=== PATIENT | male | born 1945 | race Caucasian/White ===

== ENCOUNTER → 2017-01-20 | Outpatient (CLI) | payer OTHER ==
[2017-01-20 18:01] LABS: BASO % 1.4 %; BASO ABS # 0.07 K/uL (0-0.2); COMPLETE YES; EOS % 6.3 %; HEMATOCRIT 45.3 % (42-52); IG% 0.2 %; LYMPH % 39.8 %; LYMPH ABS # 2.02 K/uL (1.2-3.4); MEAN CELL VOLUME 91.3 fL (80-100); MEAN CORPUSCULAR HEMOGLOBIN 30.8 pg (25-34); MEAN CORPUSCULAR HGB CONC 33.8 g/dl (32-36); MEAN PLATELET VOLUME 10.4 fL (7.4-10.4); MONO % 10.3 %; PLATELET COUNT 205 K/uL (130-400); RED BLOOD COUNT 4.96 M/uL (4.7-6.1); WHITE BLOOD COUNT 5.07 K/uL (4.8-10.8)
[2017-01-20 18:56] LABS: ALT/SGPT 37 U/L (12-78); AST/SGOT 69 U/L (15-37); BLOOD UREA NITROGEN 31 mg/dl (7-18); BUN/CREATININE RATIO 22.2 (10-20); CALCIUM 9.5 mg/dl (8.5-10.1); CARBON DIOXIDE 29 mmol/L (21-32); CHLORIDE 105 mmol/L (98-107); GLUCOSE 92 mg/dl (70-99); POTASSIUM 3.7 mmol/L (3.5-5.1); SODIUM 141 mmol/L (136-145)
[2017-01-20 19:01] LABS: ALKALINE PHOSPHATASE 70 U/L (45-117); CHOLESTEROL 196 mg/dl (0-200); CHOLESTEROL/HDL RATIO 3.6; HDL CHOLESTEROL 55 mg/dl; LDL CHOLESTEROL CALCULATED 91 mg/dl; PROSTATE SPECIFIC ANTIGEN < 0.010 ng/ml (0.000-4.000); TRIGLYCERIDES 252 mg/dl (0-150); VERY LOW DENSITY LIPOPROT CALC 50 mg/dl
== END | disposition home or self-care (01) ==
LOC: C.LABMFLN 09:01
PROVIDERS: ATTEND Family Medicine
DX: Z11.59 Encounter for screening for other viral diseases (principal); E78.5 Hyperlipidemia, unspecified; I10 Essential (primary) hypertension; Z85.46 Personal history of malignant neoplasm of prostate

== ENCOUNTER 2023-02-09 18:04 | Inpatient (IN) ==
--- NOTE | 2023-02-09 18:24 | ED Triage Note ---
Date of Service February 09, 2023 History of Present Illness This patient was briefly evaluated while in triage. An abbreviated physical exam was performed. This patient is a 77-year-old Male who presents to the ED for evaluation of left calf pain and swelling. S/p total knee replacement in July with multiple postoperative complications including infected prosthetic knee joint s/p explant 1 week ago. Has PICC line for ongoing IV abx. Notes increased calf swelling this morning. Not on any anticoagulation. No history of blood clots. Denies numbness/tingling. Denies fever/chills, n/v, chest pain, SOB. Physical Exam Constitutional: alert and oriented x3. no acute distress. HEENT: normocephalic, atraumatic. normal conjunctiva.PERRLA. EOM's grossly intact. Respiratory: lungs are clear to auscultation without wheezes, rhonchi, or rales bilaterally. equal chest rise. normal respiratory effort, no accessory muscle use. Cardiovascular: normal heart sounds without murmur. regular rate and rhythm. GI: abdomen is soft, nontender. No palpable masses. No rebound tenderness or guarding. MSK: left s/p surgery. No erythema, warmth, tenderness knee. +3 swelling Left calf. Psych:appropriate mood and affect. Initial orders for labs and / or imaging were placed and patient was placed in the waiting area until a bed is available. Please see further documentation for the full ED course.
--- NOTE | 2023-02-09 19:50 | Emergency Department Note ---
Impression & Plan Complication, postoperative infection, Hematoma of left lower extremity ED Provider Note NAME: SWAPNIL CAMARA AGE: 77 SEX: M : 1945 ARRIVES VIA: Walk-In INFORMANT: Patient, ED PROVIDER(S): Garrett Garcia DO CHIEF COMPLAINT: Leg swelling HPI: The patient is a 77-year-old male who presented to the emergency department for an evaluation of left leg swelling. The patient describes swelling in his leg that became worse over the course the last 48 hours. He has had multiple surgeries on his left knee. He has a history of knee replacement and had a septic knee joint. He had removal of the hardware. He is getting IV antibiotics through a PICC line and also has antibiotic infused spacers in his left knee. He started noticing leg swelling. He does not have a history of DVT. He denies having any chest pain or difficulty breathing. He currently does not take any blood thinners. ROS: See above HPI for pertinent positives & negatives. A total of 10 systems reviewed and were otherwise negative. PAST MEDICAL HISTORY: See Below PAST SURGICAL HISTORY: See Below FAMILY HISTORY: See Below SOCIAL HISTORY: See Below HOME MEDICATIONS: See Below ALLERGIES: See Below VITALS: See Below PHYSICAL EXAMINATION: GENERAL: Patient is awake alert in no acute distress patient is resting comfortably and showing no signs of anxiety EYES: The conjunctivae are clear. The pupils are round and reactive. EARS, NOSE, MOUTH AND THROAT: The nose is without any evidence of any deformity. NECK: The neck is nontender and supple. RESPIRATORY: Normal respiratory effort is noted there is no evidence of wheezing rhonchi or rales CARDIOVASCULAR: Regular rate and rhythm noted there no murmurs rubs or gallops normal S1 normal S2. GASTROINTESTINAL: The abdomen is soft. Abdomen is nontender. MUSCULOSKELETAL/EXTREMITIES: There is a wound dressing in place over the left knee. There is no drainage or dehiscence. SKIN: Skin is warm and dry. There is symmetric swelling over the entire left lower leg. Pulses are symmetric in both feet. NEUROLOGIC: Patient is awake alert and oriented x3 MEDICAL DECISION MAKING: The patient is a 77-year-old male who presented to the emergency department for left leg pain. The patient noticed swelling on his left lower extremity. He is status post surgery on his left knee. He had a knee infection which was complicated with E. coli as well as Staphylococcus species. He has been receiving meropenem as well as vancomycin through a PICC line. The patient was treated with his dose of vancomycin in the emergency department. He was sent for a Doppler of the leg. This appeared to be consistent with a complex fluid collection in the left calf. The radiologist recommended a CT of the leg. CT with contrast was obtained. It took a very long time to have the scan done and then read. Ultimately it was found to be consistent with signs of a hematoma in the left leg with the possibility of active extravasation of contrast. It is unclear if this is arterial venous at this time. I discussed the patient's laboratory and radiographic studies with him. He was nontachycardic. He was not hypoxic or hypotensive. The patient's hemoglobin did drop however his last hemoglobin on our system was before his most recent surgery. The patient was unable to be transferred to the facility where he had the procedure as they have no beds at this time. For this reason I discussed this case with the orthopedic physician in our facility. The patient was consented for transfer for when he could be transferred. I also discussed the case with the on-call [facility] hospitalist. Triage Nursing notes reviewed. Prior medical records reviewed Vital Signs: reviewed and remarkable for no significant abnormalities Differential diagnosis: DVT, musculoskeletal, infection, joint effusion, trauma, lymphedema, idiopathic, CHF, as well as other pathologies. ER treatment provided: See below Diagnostics interpreted by me: ECG: none Cardiac Monitoring: An order was placed for continuous cardiac monitoring. The monitor shows a rate of 81 bpm with sinus rhythm. Laboratory studies: As stated above and show below. Imaging studies: See below. Radiographic imaging was reviewed by myself Consultation(s): I discussed this case with Dr. Hodgson who is on-call for orthopedic surgery. The case was [facility] with [facility] ED COURSE: Procedures: none Critical Care: I have personally spent greater than 65 minutes of critical care time in the direct management of this patient. This includes bedside care, interpretation of diagnostic studies, and testing, discussion with consultants, patient, and family members, and other required patient management activities. This 65 minutes is in excess of all separately billable procedures. 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 Hyperlipidemia Infection of prosthetic knee joint Low testosterone Osteoarthritis of left knee Osteoarthritis of right knee Osteopenia Pancreatic cyst Surgical History History of arthroscopy of right knee x2--mensicus repair History of colonoscopy 03/24/2020 History of dental surgery History of hernia repair History of left knee replacement surgery x 3 due to infection/tear History of Mohs micrographic surgery for skin cancer x2 History of prostate biopsy malignant History of vasectomy S/P ACL repair right knee S/P prostatectomy S/P tonsillectomy and adenoids Status post right knee replacement Family History Mother Breast cancer COPD (chronic obstructive pulmonary disease) Father Myocardial infarction Grandmother (Paternal) Family hx of colon cancer Other No family history of adverse response to anesthesia Denies family history of Ovarian cancer Prostate cancer Social History Smoking Status: Never smoker Second Hand Exposure: Yes (mom smoked); Do You Dip or Chew Tobacco: No; Hx Alcohol Use: Yes Alcohol type: beer Hx Substance Use: No Preferred Language: Latvian Communication Ability: Effective Visual Impairment: No Limitations Hearing Ability: Normal Alarm Mechanic Required: No Beliefs That Will Affect Care: None marital status: Current Living Situation: Spouse current occupational status: employed current occupation: self employed doctor Feels Safe at Home: Yes Childhood Exposure to Second-Hand Smoke: Yes Diet: low carbohydrate caffeine: Yes (coffee) Dental Care, Regularly: Yes Physical Activity Frequency: 3-4 Times per Week Physical Activity Frequency Comment: weight training Seatbelt Use: sometimes Sunscreen Use: No Do you think of yourself as: straight/heterosexual Assistive Devices: Glasses and Nebulizer Allergies Allergies Allergy/AdvReac Type Severity Reaction Status Date / Time No Known Allergies Allergy Verified 01/13/23 07:24 Home Meds Home Medications Medication Instructions Recorded Confirmed rosuvastatin 20 mg tablet (Crestor) 20 mg PO QAM 05/03/19 02/09/23 gabapentin 300 mg capsule 300 mg PO DAILY 01/13/23 02/09/23 imiquimod 2.5 % topical cream in a 1 pump topical DAILY PRN as 01/13/23 02/09/23 pump directed omega-3 acid ethyl esters 1 gram 2 cap PO DAILY PRN joint aches 01/13/23 02/09/23 capsule amitriptyline 25 mg tablet 25 mg PO HS 02/09/23 02/09/23 aspirin 81 mg tablet,delayed 81 mg PO BID 02/09/23 02/09/23 release oxycodone-acetaminophen 5 mg-325 1 tab PO Q4 PRN Pain, Moderate 02/09/23 02/09/23 mg tablet propranolol 160 mg capsule,24 160 mg PO QAM 02/09/23 02/09/23 hr,extended release Previous Rx's Medication Instructions Recorded multivitamin (Daily Multi-Vitamin 1 tab PO DAILY #90 tabs 04/13/19 tablet) sumatriptan succinate 100 mg tablet 100 mg PO .COMPLEX #1 tab 04/13/19 pantoprazole 20 mg tablet,delayed 20 mg PO DAILY #30 tabs 01/13/23 release testosterone cypionate 200 mg/mL 70 mg (0.35 mL) IM .COMPLEX #10 mL 01/13/23 intramuscular oil Results & Data (ED) Vital Signs Vital Signs - 24 hr 02/09/23 18:19 02/09/23 20:39 02/09/23 19:53 Temperature 36.5 C Temperature Source Temporal Artery Scan Pulse Rate 92 H 81 Pulse Rhythm Regular Respiratory Rate 18 Respiratory Effort / Characteristics Respiratory Depth Respiratory Pattern Blood Pressure 153/85 H Blood Pressure Mean 107 Pulse Oximetry 98 99 Oxygen Delivery Method Room Air Room Air Sepsis Recent Fever Within 48 Hours No Sepsis New/Unexplained Change in Mental Status No Sepsis Action Taken by Nursing No Action Required 02/09/23 19:53 Temperature Temperature Source Pulse Rate Pulse Rhythm Respiratory Rate Respiratory Effort / Characteristics Non-Labored Respiratory Depth Normal Respiratory Pattern Regular Blood Pressure Blood Pressure Mean Pulse Oximetry Oxygen Delivery Method Sepsis Recent Fever Within 48 Hours Sepsis New/Unexplained Change in Mental Status Sepsis Action Taken by Jail Medications Current Medication List: was personally reviewed by me Laboratory Data Attestation: I reviewed the patient's lab results. 02/09/23 19:25 02/09/23 19:25 Lab Results 02/09/23 02/09/23 02/09/23 Range/Units 19:25 19:25 19:25 WBC 7.14 (4.8-10.8) K/ul RBC 3.81 L (4.70-6.10) M/uL Hgb 12.1 L (14.0-18.0) g/dl Hct 36.1 L (42.0-52.0) % MCV 94.8 (80.0-100.0) fL MCH 31.8 (25.0-34.0) pg MCHC 33.5 (32.0-36.0) g/dL RDW Std Deviation 47.1 H (36.4-46.3) fL RDW Coeff of Marc 13.7 (11.5-14.5) % Plt Count 230 (130-400) K/uL MPV 10.8 (9.4-12.4) fL Immature Gran % (Auto) 0.4 % Neut % (Auto) 66.0 % Lymph % (Auto) 16.9 % Hutchinson % (Auto) 9.2 % Eos % (Auto) 6.7 % Baso % (Auto) 0.8 % Neut # (Auto) 4.70 (1.40-6.50) K/uL Lymph # (Auto) 1.21 (1.2-3.4) K/uL Hutchinson # (Auto) 0.66 H (0.11-0.59) K/uL Eos # (Auto) 0.48 (0-0.50) K/uL Baso # (Auto) 0.06 (0-0.2) K/uL Immature Gran # (Auto) 0.03 (0.01-0.20) K/uL PT 11.0 (9.0-12.0) Seconds INR 1.0 (0.9-1.1) APTT 28.2 (21.0-31.0) Seconds PTT Ratio 1.0 Sodium 139 (136-145) mmol/L Potassium 4.0 (3.5-5.1) mmol/L Chloride 105 (98-107) mmol/L Carbon Dioxide 27 (21-32) mmol/L Anion Gap 7 (3-11) BUN 28 H (6-23) mg/dl Creatinine 0.86 (0.6-1.4) mg/dl Est Cr Clr Drug Dosing Not Reportable Est GFR ( Amer) 97.6 ml/min Est GFR (Non-Af Amer) 84.2 ml/min BUN/Creatinine Ratio 32.6 H (10-20) Glucose 105 H (70-99(Fasting)) mg/dl Calcium 9.2 (8.6-10.3) mg/dl Total Bilirubin 0.5 (0.2-1.0) mg/dl AST 59 H (13-39) U/L ALT 30 (7-52) U/L Alkaline Phosphatase 109 H (34-104) U/L Total Protein 7.2 (6.0-8.3) gm/dl Albumin 3.7 (3.4-5.0) gm/dl Globulin 3.5 (2.5-4.0) gm/dl Albumin/Globulin Ratio 1.1 (0.9-2) Lipase 95 H (11-82) U/L SARS-CoV-2, RNA, NAAT (NEGATIVE) 02/10/23 Range/Units 01:04 WBC (4.8-10.8) K/ul RBC (4.70-6.10) M/uL Hgb (14.0-18.0) g/dl Hct (42.0-52.0) % MCV (80.0-100.0) fL MCH (25.0-34.0) pg MCHC (32.0-36.0) g/dL RDW Std Deviation (36.4-46.3) fL RDW Coeff of Marc (11.5-14.5) % Plt Count (130-400) K/uL MPV (9.4-12.4) fL Immature Gran % (Auto) % Neut % (Auto) % Lymph % (Auto) % Hutchinson % (Auto) % Eos % (Auto) % Baso % (Auto) % Neut # (Auto) (1.40-6.50) K/uL Lymph # (Auto) (1.2-3.4) K/uL Hutchinson # (Auto) (0.11-0.59) K/uL Eos # (Auto) (0-0.50) K/uL Baso # (Auto) (0-0.2) K/uL Immature Gran # (Auto) (0.01-0.20) K/uL PT (9.0-12.0) Seconds INR (0.9-1.1) APTT (21.0-31.0) Seconds PTT Ratio Sodium (136-145) mmol/L Potassium (3.5-5.1) mmol/L Chloride (98-107) mmol/L Carbon Dioxide (21-32) mmol/L Anion Gap (3-11) BUN (6-23) mg/dl Creatinine (0.6-1.4) mg/dl Est Cr Clr Drug Dosing Est GFR ( Amer) ml/min Est GFR (Non-Af Amer) ml/min BUN/Creatinine Ratio (10-20) Glucose (70-99(Fasting)) mg/dl Calcium (8.6-10.3) mg/dl Total Bilirubin (0.2-1.0) mg/dl AST (13-39) U/L ALT (7-52) U/L Alkaline Phosphatase (34-104) U/L Total Protein (6.0-8.3) gm/dl Albumin (3.4-5.0) gm/dl Globulin (2.5-4.0) gm/dl Albumin/Globulin Ratio (0.9-2) Lipase (11-82) U/L SARS-CoV-2, RNA, NAAT NEGATIVE (NEGATIVE) Administered Medications Discontinued Medications Vancomycin HCl 1,250 mg/ (Sodium Chloride) 525 mls @ 200 mls/hr IV ONE ONE Stop: 02/10/23 01:08 Last Admin: 02/09/23 22:57 Dose: 200 mls/hr Documented By: JITENDRA Ioversol (Optiray 320 100ml) 73 ml IV ONCE ONE Stop: 02/09/23 22:09 Last Admin: 02/09/23 22:09 Dose: 73 ml Documented By: DAMIAN Ioversol (Optiray 320 100ml) 89 ml IV ONCE ONE Stop: 02/09/23 22:50 Last Admin: 02/09/23 22:49 Dose: 89 ml Documented By: EVE Imaging Data Radiologist's Impression: Venous Doppler Study 02/09/23 18:28 Exam(s): US VENOUS LEFT LOWER EXTREMITY EXAM: US Duplex Left Lower Extremity Veins CLINICAL HISTORY: Reason for exam: s/p knee surgery, left calf swelling. TECHNIQUE: Real-time duplex ultrasound scan of the left lower extremity veins integrating B-mode two-dimensional vascular structure, Doppler spectral analysis, color flow Doppler imaging and compression. COMPARISON: No relevant prior studies available. FINDINGS: Deep veins: Unremarkable. No DVT of the LEFT lower extremity. Superficial veins: Unremarkable. No thrombus in the visualized great saphenous vein. Soft tissues: No acute findings. No popliteal cyst. Other findings: Complex collection in left medial calf measuring 10.8 x 3.4 x 7.3 cm. Consider MRI or CT scan for further evaluation. IMPRESSION: 1. No DVT of the LEFT lower extremity. 2. Complex collection in left medial calf measuring 10.8 x 3.4 x 7.3 cm. Consider MRI or CT scan for further evaluation. Electronically signed by: Yordan Sheth MD 02/09/23 20:[address] 02/09/23 20:35 Exam(s): CT EXTREMITY LEFT LOWER With Contrast IV Amt: 89 ml optiray 320 EXAM: CT Left Lower Extremity With Intravenous Contrast CLINICAL HISTORY: Reason for exam: swelling. TECHNIQUE: Axial computed tomography images of the left lower extremity with intravenous contrast. CTDI is 8 mGy and DLP is 540.91 mGy-cm. Automated exposure control was utilized for the study. A dose lowering technique was utilized adhering to the principles of ALARA. CONTRAST: Patient received 89 ml optiray 320 of IV contrast COMPARISON: No relevant prior studies available. FINDINGS: Status post LEFT knee arthroplasty revision. There are metallic tibial and femoral components with cement filling the old tibial and femoral nail tracks. No spacer identified. Midline cutaneous skin stable, with organized fluid collection deep to the skin staple line, which measures 6.5 cm medial-lateral by 7 mm in thickness by approximately 15 cm superior-inferior. Correlate for a subcutaneous, postoperative abscess. Mild knee joint fluid within the joint space with moderate synovitis. Septic arthritis cannot be excluded. Complex fluid collection along the medial aspect of the calf, measuring approximately 6.8 x 4.9 x 13.3 cm. The center was located approximately 12 cm distal to the knee joint and 2 cm deep to the skin surface. Concerning for represent a postoperative hematoma. No fracture of the tibia, fibula, or femur. IMPRESSION: Status post LEFT knee arthroplasty revision. Midline cutaneous skin stable, with organized fluid collection deep to the skin staple line, which measures 6.5 cm medial-lateral by 7 mm in thickness by approximately 15 cm superior-inferior. CORRELATE FOR A SUBCUTANEOUS, POSTOPERATIVE ABSCESS. Mild knee joint fluid within the joint space with moderate synovitis. SEPTIC ARTHRITIS CANNOT BE EXCLUDED. Complex fluid collection along the medial aspect of the calf, measuring approximately 6.8 x 4.9 x 13.3 cm. The center was located approximately 12 cm distal to the knee joint and 2 cm deep to the skin surface. CONCERNING FOR POSTOPERATIVE HEMATOMA. Consider postcontrast knee MRI for further evaluation. Electronically signed by: Yordan Sheth MD 02/10/23 01:02 AM Venous Doppler Study 02/09/23 18:28 Exam(s): US VENOUS LEFT LOWER EXTREMITY EXAM: US Duplex Left Lower Extremity Veins CLINICAL HISTORY: Reason for exam: s/p knee surgery, left calf swelling. TECHNIQUE: Real-time duplex ultrasound scan of the left lower extremity veins integrating B-mode two-dimensional vascular structure, Doppler spectral analysis, color flow Doppler imaging and compression. COMPARISON: No relevant prior studies available. FINDINGS: Deep veins: Unremarkable. No DVT of the LEFT lower extremity. Superficial veins: Unremarkable. No thrombus in the visualized great saphenous vein. Soft tissues: No acute findings. No popliteal cyst. Other findings: Complex collection in left medial calf measuring 10.8 x 3.4 x 7.3 cm. Consider MRI or CT scan for further evaluation. IMPRESSION: 1. No DVT of the LEFT lower extremity. 2. Complex collection in left medial calf measuring 10.8 x 3.4 x 7.3 cm. Consider MRI or CT scan for further evaluation. Electronically signed by: Yordan Sheth MD 02/09/23 20:[address] 02/09/23 20:35 Exam(s): CT EXTREMITY LEFT LOWER With Contrast IV Amt: 89 ml optiray 320 EXAM: CT Left Lower Extremity With Intravenous Contrast CLINICAL HISTORY: Reason for exam: swelling. TECHNIQUE: Axial computed tomography images of the left lower extremity with intravenous contrast. CTDI is 8 mGy and DLP is 540.91 mGy-cm. Automated exposure control was utilized for the study. A dose lowering technique was utilized adhering to the principles of ALARA. CONTRAST: Patient received 89 ml optiray 320 of IV contrast COMPARISON: No relevant prior studies available. FINDINGS: Status post LEFT knee arthroplasty revision. There are metallic tibial and femoral components with cement filling the old tibial and femoral nail tracks. No spacer identified. Midline cutaneous skin stable, with organized fluid collection deep to the skin staple line, which measures 6.5 cm medial-lateral by 7 mm in thickness by approximately 15 cm superior-inferior. Correlate for a subcutaneous, postoperative abscess. Mild knee joint fluid within the joint space with moderate synovitis. Septic arthritis cannot be excluded. Complex fluid collection along the medial aspect of the calf, measuring approximately 6.8 x 4.9 x 13.3 cm. The center was located approximately 12 cm distal to the knee joint and 2 cm deep to the skin surface. Concerning for represent a postoperative hematoma. No fracture of the tibia, fibula, or femur. IMPRESSION: Status post LEFT knee arthroplasty revision. Midline cutaneous skin stable, with organized fluid collection deep to the skin staple line, which measures 6.5 cm medial-lateral by 7 mm in thickness by approximately 15 cm superior-inferior. CORRELATE FOR A SUBCUTANEOUS, POSTOPERATIVE ABSCESS. Mild knee joint fluid within the joint space with moderate synovitis. SEPTIC ARTHRITIS CANNOT BE EXCLUDED. Complex fluid collection along the medial aspect of the calf, measuring approximately 6.8 x 4.9 x 13.3 cm. The center was located approximately 12 cm distal to the knee joint and 2 cm deep to the skin surface. CONCERNING FOR POSTOPERATIVE HEMATOMA. Consider postcontrast knee MRI for further evaluation. Electronically signed by: Yordan Sheth MD 02/10/23 01:02 AM Discharge Plan Visit Data Chief Complaint: Calf Pain Stated Complaint: LEFT CALF PAIN,SWELLING ED Provider: Garrett Garcia Discharge Problem: Complication, postoperative infection, Hematoma of left lower extremity Patient Disposition: Being Evaluated by Hospitalist Forms Stand Alone Forms: [facility] Prescriptions Prescriptions: No Action rosuvastatin [Crestor] 20 mg tablet 20 mg PO QAM imiquimod 2.5 % cream in metered-dose pump 1 pump topical DAILY PRN (Reason: as directed) gabapentin 300 mg capsule 300 mg PO DAILY omega-3 acid ethyl esters 1 gram capsule 2 cap PO DAILY PRN (Reason: joint aches) Patient Comments: takes in the am pantoprazole 20 mg tablet,delayed release (DR/EC) 20 mg PO DAILY Qty: 30 2RF testosterone cypionate 200 mg/mL oil 70 mg IM .COMPLEX Qty: 10 5RF Rx Instructions: inject 0.35ml every other week multivitamin [Daily Multi-Vitamin] tablet 1 tab PO DAILY Qty: 90 3RF Patient Comments: takes in the am sumatriptan succinate 100 mg tablet 100 mg PO .COMPLEX Qty: 1 0RF Rx Instructions: 100 mg PO TAKE AT ONSET OF MIGRAINE HEADACHE. MAY REPEAT IN 2 HOURS IF NEEDED; aspirin 81 mg tablet,delayed release (DR/EC) 81 mg PO BID oxycodone-acetaminophen 5-325 mg tablet 1 tab PO Q4 PRN (Reason: Pain, Moderate) propranolol 160 mg capsule,extended release 24 hr 160 mg PO QAM Patient Comments: takes in the am amitriptyline 25 mg tablet 25 mg PO HS Referrals Referrals: Michael Malik MD [Primary Care Provider] -
--- NOTE | 2023-02-09 20:31 | Ultrasound Report ---
Exam(s): US VENOUS LEFT LOWER EXTREMITY EXAM: US Duplex Left Lower Extremity Veins CLINICAL HISTORY: Reason for exam: s/p knee surgery, left calf swelling. TECHNIQUE: Real-time duplex ultrasound scan of the left lower extremity veins integrating B-mode two-dimensional vascular structure, Doppler spectral analysis, color flow Doppler imaging and compression. COMPARISON: No relevant prior studies available. FINDINGS: Deep veins: Unremarkable. No DVT of the LEFT lower extremity. Superficial veins: Unremarkable. No thrombus in the visualized great saphenous vein. Soft tissues: No acute findings. No popliteal cyst. Other findings: Complex collection in left medial calf measuring 10.8 x 3.4 x 7.3 cm. Consider MRI or CT scan for further evaluation. IMPRESSION: 1. No DVT of the LEFT lower extremity. 2. Complex collection in left medial calf measuring 10.8 x 3.4 x 7.3 cm. Consider MRI or CT scan for further evaluation. Electronically signed by: Yordan Sheth MD 02/09/23 20:30 PM
[2023-02-09 21:14] LABS: Alanine Aminotransferase 30 U/L (7-52); Albumin Globulin Ratio 1.1 (0.9-2); Albumin Level 3.7 gm/dl (3.4-5.0); Alkaline Phosphatase 109 U/L (34-104); Anion Gap 7 (3-11); Aspartate Aminotransferase 59 U/L (13-39); BUN Creatinine Ratio 32.6 (10-20); Bilirubin,Total 0.5 mg/dl (0.2-1.0); Blood Urea Nitrogen 28 mg/dl (6-23); Calcium 9.2 mg/dl (8.6-10.3); Carbon Dioxide 27 mmol/L (21-32); Chloride 105 mmol/L (98-107); Est GFR (African American) 97.6 ml/min; Est GFR (Non-African American) 84.2 ml/min; Globulin 3.5 gm/dl (2.5-4.0); Glucose 105 mg/dl (70-99(Fasting)); Lipase 95 U/L (11-82); Sodium 139 mmol/L (136-145); Total Protein 7.2 gm/dl (6.0-8.3)
[2023-02-09 21:35] LABS: Partial Thromboplastin Time 28.2 Seconds (21.0-31.0)
[2023-02-09] MEDS ORDERED: OPTIRAY 320 100ml IV ONE ×2 (22:08→22:49)
[2023-02-09 22:18] LABS: Basophils # (auto) 0.06 K/uL (0-0.2); Basophils % (auto) 0.8 %; Eosinophils # (auto) 0.48 K/uL (0-0.50); Eosinophils % (auto) 6.7 %; Hematocrit (blood only) 36.1 % (42.0-52.0); Hemoglobin 12.1 g/dl (14.0-18.0); Immature Granulocytes # (auto) 0.03 K/uL (0.01-0.20); Immature Granulocytes % (auto) 0.4 %; Lymphocytes # (auto) 1.21 K/uL (1.2-3.4); Lymphocytes % (auto) 16.9 %; Mean Corpuscular Hemoglobin 31.8 pg (25.0-34.0); Mean Corpuscular Hgb Conc 33.5 g/dL (32.0-36.0); Mean Corpuscular Volume 94.8 fL (80.0-100.0); Mean Platelet Volume 10.8 fL (9.4-12.4); Monocytes # (auto) 0.66 K/uL (0.11-0.59); Monocytes % (auto) 9.2 %; Platelet Count 230 K/uL (130-400); RDW Coefficient of Variation 13.7 % (11.5-14.5); RDW Standard Deviation 47.1 fL (36.4-46.3); Red Blood Count 3.81 M/uL (4.70-6.10); White Blood Count 7.14 K/ul (4.8-10.8)
[2023-02-09] MEDS ORDERED: VANCOMYCIN CONSULT ACTIVE PRN (22:31)
[2023-02-09] MEDS ORDERED: VANCOMYCIN HCL 1,250 MG in SODIUM CHLORIDE 0.9% 500 ML IV ONE (22:31)
--- NOTE | 2023-02-10 01:03 | CT Scan Report ---
Exam(s): CT EXTREMITY LEFT LOWER With Contrast IV Amt: 89 ml optiray 320 EXAM: CT Left Lower Extremity With Intravenous Contrast CLINICAL HISTORY: Reason for exam: swelling. TECHNIQUE: Axial computed tomography images of the left lower extremity with intravenous contrast. CTDI is 8 mGy and DLP is 540.91 mGy-cm. Automated exposure control was utilized for the study. A dose lowering technique was utilized adhering to the principles of ALARA. CONTRAST: Patient received 89 ml optiray 320 of IV contrast COMPARISON: No relevant prior studies available. FINDINGS: Status post LEFT knee arthroplasty revision. There are metallic tibial and femoral components with cement filling the old tibial and femoral nail tracks. No spacer identified. Midline cutaneous skin stable, with organized fluid collection deep to the skin staple line, which measures 6.5 cm medial-lateral by 7 mm in thickness by approximately 15 cm superior-inferior. Correlate for a subcutaneous, postoperative abscess. Mild knee joint fluid within the joint space with moderate synovitis. Septic arthritis cannot be excluded. Complex fluid collection along the medial aspect of the calf, measuring approximately 6.8 x 4.9 x 13.3 cm. The center was located approximately 12 cm distal to the knee joint and 2 cm deep to the skin surface. Concerning for represent a postoperative hematoma. No fracture of the tibia, fibula, or femur. IMPRESSION: Status post LEFT knee arthroplasty revision. Midline cutaneous skin stable, with organized fluid collection deep to the skin staple line, which measures 6.5 cm medial-lateral by 7 mm in thickness by approximately 15 cm superior-inferior. CORRELATE FOR A SUBCUTANEOUS, POSTOPERATIVE ABSCESS. Mild knee joint fluid within the joint space with moderate synovitis. SEPTIC ARTHRITIS CANNOT BE EXCLUDED. Complex fluid collection along the medial aspect of the calf, measuring approximately 6.8 x 4.9 x 13.3 cm. The center was located approximately 12 cm distal to the knee joint and 2 cm deep to the skin surface. CONCERNING FOR POSTOPERATIVE HEMATOMA. Consider postcontrast knee MRI for further evaluation. Electronically signed by: Yordan Sheth MD 02/10/23 01:02 AM
[2023-02-10] MEDS ORDERED: oxyCODONE/ACETAMINOPHEN 5mg/325mg TAB PO PRN (01:46)
[2023-02-10] MEDS ORDERED: IMIQUIMOD TOP PRN (01:46)
[2023-02-10] MEDS ORDERED: [UNRECOGNIZED DRUG - OTHER] TOP PRN (01:46)
[2023-02-10] MEDS ORDERED: SUMAtriptan succinate 100 MG TAB PO SCH (02:00)
[2023-02-10] MEDS ORDERED: AMITRIPTYLINE HCL 25 MG TAB PO SCH ×2 (02:00→21:00)
--- NOTE | 2023-02-10 03:42 | History & Physical Report ---
Date of Service February 10, 2023 Assessment & Plan (1) Complication, postoperative infection: Plan: 77yo male s/p left TKA performed 08/11/22 with subsequent trauma resulting in medial retinaculum tear s/p surgical repair x 2, persistent infection s/p recent explant with placement of antibiotic spacer. Patient is on Ertapenem and Vancomycin. Presenting this evening with acute swelling and pain. Found to have a complex fluid collection along the medial aspect of the calf, measuring approximately 6.8 x 4.9 x 13.3 cm concerning for infection/abscess vs postoperative hematoma. A small tubular hyperdense focus within the medial aspect of the hematoma wit hin the medial head of the right gastrocnemius. This represents active extravasation. This favors active venous bleeding although active arterial bleeding could appear similar. Patient is afebrile, nontoxic in appearance. Hgb=12.1, Hct=36.1. Pain is well controlled at present. Patient was discussed with on-call Orthopedics attending from [facility]. He has been accepted for transfer to their facility - accepting attending Dr. Garrett Wilkes. No beds available at this time -anticipated bed in 24-48 hours. Admit to medical Continue Vancomycin and Ertapenem Hold ASA for now and monitor CBC to assess for ongoing bleeding/extravasation Orthopedics consultation appreciated Tylenol and Oxycodone as needed for pain (2) Chronic GERD: Plan: Chronic. Stable -Continue Protonix 20mg po daily (3) Hyperlipidemia: Plan: Chronic. Stable -Continue Crestor 20mg po daily (4) Benign essential hypertension: Plan: Chronic. Blood pressure elevated at present 153/85 -Continue Propranolol -Continue to monitor F/E/N - Heplock. Electrolytes WNL. Heart healthy diet Ppx - no chemoprophylaxis given concern for hematoma Code - Full per discussion with patient Dispo - Admit to medical with telemetry - transfer to [facility] when bed becomes available History of Present Illness Chief Complaint: left calf swelling Primary Care Provider: Michael Malik MD Marco A Perez is a pleasant 77yo male presenting with swelling and pain of the LLE. Patient had a left TKA performed at [facility] on 11 August 2022. The surgery reportedly went well. Shortly afterwards he slipped on ice and tore his medial retinaculum. He had surgical repair x 2 after which he developed persistent drainage. On November 28, 2022 he presented to [facility] with sepsis. He had a washout performed. His cultures were POSITIVE for E.coli. He subsequently had a PICC line placed and was started on Ceftriaxone x 8 week course. Patient continued to have drainage from a sinus tract as well as elevated ESR and CRP. He had his hardware removed on February 02, 2023 with placement of antibiotic spacer. He was started on Ertapenem and Vancomycin to be continued x 6 weeks followed by a drug holiday and reevaluation of the knee. Patient had acute swelling and pain of his LLE this evening. He denies fall, trauma. No fever chills, cough, CP or SOB. No additional complaints at this time. In the ER he is afebrile, HD stable and non-toxic in appearance. ER Course: Vancomycin 1250mg given 02/09/23 at 22:57 Allergies Allergy/AdvReac Type Severity Reaction Status Date / Time No Known Allergies Allergy Verified 01/13/23 07:24 Home Medications Medication Instructions Recorded Confirmed Type multivitamin (Daily Multi-Vitamin 1 tab PO DAILY #90 tabs 04/13/19 02/09/23 Rx tablet) sumatriptan succinate 100 mg tablet 100 mg PO .COMPLEX #1 tab 04/13/19 02/09/23 Rx rosuvastatin 20 mg tablet (Crestor) 20 mg PO QAM 05/03/19 02/09/23 History gabapentin 300 mg capsule 300 mg PO DAILY 01/13/23 02/09/23 History imiquimod 2.5 % topical cream in a 1 pump topical DAILY PRN as 01/13/23 02/09/23 History pump directed omega-3 acid ethyl esters 1 gram 2 cap PO DAILY PRN joint aches 01/13/23 02/09/23 History capsule pantoprazole 20 mg tablet,delayed 20 mg PO DAILY #30 tabs 01/13/23 02/09/23 Rx release testosterone cypionate 200 mg/mL 70 mg (0.35 mL) IM .COMPLEX #10 mL 01/13/23 02/09/23 Rx intramuscular oil amitriptyline 25 mg tablet 25 mg PO HS 02/09/23 02/09/23 History aspirin 81 mg tablet,delayed 81 mg PO BID 02/09/23 02/09/23 History release oxycodone-acetaminophen 5 mg-325 1 tab PO Q4 PRN Pain, Moderate 02/09/23 02/09/23 History mg tablet propranolol 160 mg capsule,24 160 mg PO QAM 02/09/23 02/09/23 History hr,extended release 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 Hyperlipidemia Infection of prosthetic knee joint Low testosterone Osteoarthritis of left knee Osteoarthritis of right knee Osteopenia Pancreatic cyst Surgical History History of arthroscopy of right knee x2--mensicus repair History of colonoscopy 03/24/2020 History of dental surgery History of hernia repair History of left knee replacement surgery x 3 due to infection/tear History of Mohs micrographic surgery for skin cancer x2 History of prostate biopsy malignant History of vasectomy S/P ACL repair right knee S/P prostatectomy S/P tonsillectomy and adenoids Status post right knee replacement Family History Mother Breast cancer COPD (chronic obstructive pulmonary disease) Father Myocardial infarction Grandmother (Paternal) Family hx of colon cancer Other No family history of adverse response to anesthesia Denies family history of Ovarian cancer Prostate cancer Social History Smoking Status: Never smoker Second Hand Exposure: Yes (mom smoked); Do You Dip or Chew Tobacco: No; Hx Alcohol Use: Yes Alcohol type: beer Hx Substance Use: No Preferred Language: Salvadorean Communication Ability: Effective Visual Impairment: No Limitations Hearing Ability: Normal Cold Header Required: No Beliefs That Will Affect Care: None marital status: Current Living Situation: Spouse current occupational status: employed current occupation: self employed doctor Feels Safe at Home: Yes Childhood Exposure to Second-Hand Smoke: Yes Diet: low carbohydrate caffeine: Yes (coffee) Dental Care, Regularly: Yes Physical Activity Frequency: 3-4 Times per Week Physical Activity Frequency Comment: weight training Seatbelt Use: sometimes Sunscreen Use: No Do you think of yourself as: straight/heterosexual Assistive Devices: Glasses and Nebulizer Review of Systems Review of Systems: All systems reviewed & are unremarkable except as noted in HPI & below Physical Exam Physical Exam: General: patient resting comfortably, NAD, non-toxic in appearance, AA&O x 4 Skin: warm, dry, intact, no rashes or lesions HEENT: NC/AT, PERRL, EOMI, anicteric sclera, conjunctiva without injection, external ear normal to inspection and nontender, nares patent, moist mucus membranes, dentition intact, no oropharyngeal lesions, neck supple, trachea midline, no LAD, no thyromegaly, no JVD Heart: +S1/S2, regular, no m/r/g, PICC line present right chest wall, non- tender, on erythema Lungs: equal air entry bilaterally, no rales/rhonchi/wheezes Abd: +BS, soft, NT/ND, no masses/organomegaly/ascites Ext: warm, 2+ pulses in UE/LE bilaterally, no clubbing/cyanosis, occlusive dressing present left knee incision, no bleeding/drainage or erythema appreciated. Significant swelling and rubor of the LLE, tenderness and firmness of posterior calf. Sensation/pulses/mobility intact Neuro: nonfocal, patient AA&O x 4, speech intact, no facial droop, moving all e xtremities on command with equal strength 5/5 Results & Data Results & Data Vital Signs (Past 12 Hours) Vital Signs Temp Pulse Resp BP Pulse Ox O2 Del Method 02/09/23 19:53 99 Room Air 02/09/23 20:39 81 02/09/23 18:19 36.5 C 92 H 18 153/85 H 98 Room Air Laboratory Results Laboratory Results WBC 7.14 K/ul (4.8-10.8) 02/09/23 19:25 RBC 3.81 M/uL (4.70-6.10) L 02/09/23 19:25 Hgb 12.1 g/dl (14.0-18.0) L 02/09/23 19:25 Hct 36.1 % (42.0-52.0) L 02/09/23 19:25 MCV 94.8 fL (80.0-100.0) 02/09/23 19:25 MCH 31.8 pg (25.0-34.0) 02/09/23 19:25 MCHC 33.5 g/dL (32.0-36.0) 02/09/23 19:25 RDW Std Deviation 47.1 fL (36.4-46.3) H 02/09/23 19:25 RDW Coeff of Marc 13.7 % (11.5-14.5) 02/09/23 19:25 Plt Count 230 K/uL (130-400) 02/09/23 19:25 MPV 10.8 fL (9.4-12.4) 02/09/23 19:25 Immature Gran % (Auto) 0.4 % 02/09/23 19:25 Neut % (Auto) 66.0 % 02/09/23 19:25 Lymph % (Auto) 16.9 % 02/09/23 19:25 [place] % (Auto) 9.2 % 02/09/23 19:25 Eos % (Auto) 6.7 % 02/09/23 19:25 Baso % (Auto) 0.8 % 02/09/23:25 Neut # (Auto) 4.70 K/uL (1.40-6.50) 02/09/23 19:25 Lymph # (Auto) 1.21 K/uL (1.2-3.4) 02/09/23 19:25 [place] # (Auto) 0.66 K/uL (0.11-0.59) H 02/09/23 19:25 Eos # (Auto) 0.48 K/uL (0-0.50) 02/09/23 19:25 Baso # (Auto) 0.06 K/uL (0-0.2) 02/09/23 19:25 Immature Gran # (Auto) 0.03 K/uL (0.01-0.20) 02/09/23 19:25 PT 11.0 Seconds (9.0-12.0) 02/09/23 19:25 INR 1.0 (0.9-1.1) 02/09/23 19:25 APTT 28.2 Seconds (21.0-31.0) 02/09/23 19:25 PTT Ratio 1.0 02/09/23 19:25 Sodium 139 mmol/L (136-145) 02/09/23 19:25 Potassium 4.0 mmol/L (3.5-5.1) 02/09/23 19:25 Chloride 105 mmol/L (98-107) 02/09/23 19:25 Carbon Dioxide 27 mmol/L (21-32) 02/09/23 19:25 Anion Gap 7 (3-11) 02/09/23 19:25 BUN 28 mg/dl (6-23) H 02/09/23 19:25 Creatinine 0.86 mg/dl (0.6-1.4) 02/09/23 19:25 Est Cr Clr Drug Dosing Not Reportable 02/09/23 19:25 Est GFR ( Amer) 97.6 ml/min 02/09/23 19:25 Est GFR (Non-Af Amer) 84.2 ml/min 02/09/23 19:25 BUN/Creatinine Ratio 32.6 (10-20) H 02/09/23 19:25 Glucose 105 mg/dl (70-99(Fasting)) H 02/09/23 19:25 Calcium 9.2 mg/dl (8.6-10.3) 02/09/23 19:25 Total Bilirubin 0.5 mg/dl (0.2-1.0) 02/09/23 19:25 AST 59 U/L (13-39) H 02/09/23 19:25 ALT 30 U/L (7-52) 02/09/23 19:25 Alkaline Phosphatase 109 U/L (34-104) H 02/09/23 19:25 Total Protein 7.2 gm/dl (6.0-8.3) 02/09/23 19:25 Albumin 3.7 gm/dl (3.4-5.0) 02/09/23 19:25 Globulin 3.5 gm/dl (2.5-4.0) 02/09/23 19:25 Albumin/Globulin Ratio 1.1 (0.9-2) 02/09/23 19:25 Lipase 95 U/L (11-82) H 02/09/23 19:25 SARS-CoV-2, RNA, NAAT NEGATIVE (NEGATIVE) 02/10/23 01:04 Impressions Venous Doppler Study 02/09/23 18:28 Exam(s): US VENOUS LEFT LOWER EXTREMITY EXAM: US Duplex Left Lower Extremity Veins CLINICAL HISTORY: Reason for exam: s/p knee surgery, left calf swelling. TECHNIQUE: Real-time duplex ultrasound scan of the left lower extremity veins integrating B-mode two-dimensional vascular structure, Doppler spectral analysis, color flow Doppler imaging and compression. COMPARISON: No relevant prior studies available. FINDINGS: Deep veins: Unremarkable. No DVT of the LEFT lower extremity. Superficial veins: Unremarkable. No thrombus in the visualized great saphenous vein. Soft tissues: No acute findings. No popliteal cyst. Other findings: Complex collection in left medial calf measuring 10.8 x 3.4 x 7.3 cm. Consider MRI or CT scan for further evaluation. IMPRESSION: 1. No DVT of the LEFT lower extremity. 2. Complex collection in left medial calf measuring 10.8 x 3.4 x 7.3 cm. Consider MRI or CT scan for further evaluation. Electronically signed by: Yordan Sheth MD 02/09/23 20:[address] 02/09/23 20:35 Exam(s): CT EXTREMITY LEFT LOWER With Contrast IV Amt: 89 ml optiray 320 EXAM: CT Left Lower Extremity With Intravenous Contrast CLINICAL HISTORY: Reason for exam: swelling. TECHNIQUE: Axial computed tomography images of the left lower extremity with intravenous contrast. CTDI is 8 mGy and DLP is 540.91 mGy-cm. Automated exposure control was utilized for the study. A dose lowering technique was utilized adhering to the principles of ALARA. CONTRAST: Patient received 89 ml optiray 320 of IV contrast COMPARISON: No relevant prior studies available. FINDINGS: Status post LEFT knee arthroplasty revision. There are metallic tibial and femoral components with cement filling the old tibial and femoral nail tracks. No spacer identified. Midline cutaneous skin stable, with organized fluid collection deep to the skin staple line, which measures 6.5 cm medial-lateral by 7 mm in thickness by approximately 15 cm superior-inferior. Correlate for a subcutaneous, postoperative abscess. Mild knee joint fluid within the joint space with moderate synovitis. Septic arthritis cannot be excluded. Complex fluid collection along the medial aspect of the calf, measuring approximately 6.8 x 4.9 x 13.3 cm. The center was located approximately 12 cm distal to the knee joint and 2 cm deep to the skin surface. Concerning for represent a postoperative hematoma. No fracture of the tibia, fibula, or femur. IMPRESSION: Status post LEFT knee arthroplasty revision. Midline cutaneous skin stable, with organized fluid collection deep to the skin staple line, which measures 6.5 cm medial-lateral by 7 mm in thickness by approximately 15 cm superior-inferior. CORRELATE FOR A SUBCUTANEOUS, POSTOPERATIVE ABSCESS. Mild knee joint fluid within the joint space with moderate synovitis. SEPTIC ARTHRITIS CANNOT BE EXCLUDED. Complex fluid collection along the medial aspect of the calf, measuring approximately 6.8 x 4.9 x 13.3 cm. The center was located approximately 12 cm distal to the knee joint and 2 cm deep to the skin surface. CONCERNING FOR POSTOPERATIVE HEMATOMA. Consider postcontrast knee MRI for further evaluation. Electronically signed by: Yordan Sheth MD 02/10/23 01:02 AM PG Care Time/CCT Total # of Minutes Spent Total Time Spent with Patient: Total time spent is greater than 50% in coordination of care (as documented) at patient's floor/unit and/or counseling patient: Coding Level of Care Code 62143 INT INP/OBS CARE 2/55MIN Diagnoses Complication, postoperative infection T81.40XA Encounter type: initial encounter Postoperative infection type: unspecified type Chronic GERD K21.9 Hyperlipidemia E78.5 Benign essential hypertension I10 (1) Complication, postoperative infection Encounter type: initial encounter Postoperative infection type: unspecified type Qualified Code(s): T81.40XA - Infection following a procedure, unspecified, initial encounter
[2023-02-10] MEDS ORDERED: ONDANSETRON INJ 2 MG/ML 2 ML VIAL IV PRN (05:24)
[2023-02-10] MEDS ORDERED: VANCOMYCIN HCL 1,000 MG in SODIUM CHLORIDE 0.9% 250 ML IV SCH (05:24)
[2023-02-10] MEDS ORDERED: VANCOMYCIN CONSULT ACTIVE PRN (05:24)
[2023-02-10] MEDS ORDERED: ACETAMINOPHEN 325 MG TAB PO PRN (05:24)
[2023-02-10] MEDS ORDERED: DOCUSATE SODIUM 100 MG CAP PO PRN (05:24)
[2023-02-10] MEDS ORDERED: ERTAPENEM SODIUM 1,000 MG in SYRINGE 0 ML IV SCH (06:00)
[2023-02-10] MEDS ORDERED: VANCOMYCIN HCL 1,250 MG in SODIUM CHLORIDE 0.9% 250 ML IV SCH (09:00)
[2023-02-10] MEDS ORDERED: GABAPENTIN 300 MG CAP PO SCH (09:00)
[2023-02-10] MEDS ORDERED: ROSUVASTATIN CALCIUM 20 MG TAB PO SCH (09:00)
[2023-02-10] MEDS ORDERED: ASPIRIN 81 MG ECTAB PO SCH (09:00)
[2023-02-10] MEDS ORDERED: PANTOprazole 40 MG TAB PO SCH ×2 (09:00)
[2023-02-10] MEDS ORDERED: PROPRANOLOL HCL LA 80 MG CAPCR PO SCH (09:00)
--- NOTE | 2023-02-10 09:47 | Pharmacy Report ---
Pharmacy PK ABX Note - Date of Service February 10, 2023 - Assessment and Plan Assessment 77 year old M receiving IV Vancomycin + Ertapenem. Patient had a left TKA performed at [facility] on 11 August 2022. The surgery reportedly went well. Shortly afterwards he slipped on ice and tore his medial retinaculum. He had surgical repair x 2 after which he developed persistent drainage. On November 28, 2022 he presented to [facility] with sepsis. He had a washout performed. His cultures were POSITIVE for E.coli. He subsequently had a PICC line placed and was started on Ceftriaxone x 8 week course. Patient continued to have drainage from a sinus tract as well as elevated ESR and CRP. He had his hardware removed on February 02, 2023 with placement of antibiotic spacer. He was started on Ertapenem and Vancomycin to be continued x 6 weeks followed by a drug holiday and reevaluation of the knee. Patient had acute swelling and pain of his LLE last evening and reported to [facility]. Patient reports dose of Vancomycin = 1250mg IV Q12H. Plan Vancomycin * 1250mg IV last night, random this am = 14.7mg/dl * Maintenance dose, continue 1250 mg IV every 12 hours * Random level ordered for: 02/11/23 Ertapenem: * 1g IV Q24H for CrCl > 30ml/min Pharmacy will continue to follow and will adjust dose/frequency as necessary. Thank you.
--- NOTE | 2023-02-10 11:35 | Orthopedic Consultation ---
Date of Consultation February 10, 2023 Assessment & Plan (1) Hematoma of left lower extremity: He has a large fluid collection in his left lower leg after numerous previous surgeries, last being about 1 week ago. This fluid is likely most consistent with blood, but this may be serous fluid or pus. I think infection is less likely, as he does not have significant erythema or induration of the lower leg. The fluid collection does seem to be extending from the posterior knee joint area, and is likely secondary to his recent knee surgery. His excessive activity yesterday may have contributed. No evidence of compartment syndrome. I do not see any indication for emergent knee surgery while he is here. I agree with transfer to [facility] where he had his previous surgery done as soon as a bed is available. In the meantime, would recommend Pedro wrap on the left lower leg, ice, elevation, and limited activity to reduce swelling. History of Present Illness Reason for Consultation: Left lower leg swelling Attending Physician: Joon Murillo, History of Present Illness Mr. Perez is a 77-year-old male who previously underwent a left total knee arthroplasty in July [address] [facility]. He subsequently underwent repair of a medial retinacular repair in September, followed by a revision of the same in October. After his October surgery, he developed a persistently draining sinus, and reports that he would get about 40 cc of drainage per day. He then underwent I&D of his total knee arthroplasty with polyethylene spacer exchange in November. This failed to eradicate his infection, and he recently underwent a stage I revision of his total knee arthroplasty with removal of previous components and placement of antibiotic cement spacer about 1 week ago on 02/02/23. Of note, no drain was placed after this last surgery. His wound and dressings have been completely dry since this past surgery, but notes that he had quite a bit of drainage from that knee prior to this last surgery. He reports that he was doing well until just yesterday when he was on his feet a lot and he developed significant swelling in his calf area. It was quite painful. He came to the emergency room, and transfer was arranged to [facility] where he had his surgery done, but no beds were available. He was therefore admitted to [facility] until transfer could be completed. He does note that since he has been resting since admission, his pain and swelling have improved. He is on aspirin 81 mg twice a day for anticoagulation. Allergies Allergy/AdvReac Type Severity Reaction Status Date / Time No Known Allergies Allergy Verified 01/13/23 07:24 Home Medications Medication Instructions Recorded Confirmed Type multivitamin (Daily Multi-Vitamin 1 tab PO DAILY #90 tabs 04/13/19 02/09/23 Rx tablet) sumatriptan succinate 100 mg tablet 100 mg PO .COMPLEX #1 tab 04/13/19 02/09/23 Rx rosuvastatin 20 mg tablet (Crestor) 20 mg PO QAM 05/03/19 02/09/23 History gabapentin 300 mg capsule 300 mg PO DAILY 01/13/23 02/09/23 History imiquimod 2.5 % topical cream in a 1 pump topical DAILY PRN as 01/13/23 02/09/23 History pump directed omega-3 acid ethyl esters 1 gram 2 cap PO DAILY PRN joint aches 01/13/23 02/09/23 History capsule pantoprazole 20 mg tablet,delayed 20 mg PO DAILY #30 tabs 01/13/23 02/09/23 Rx release testosterone cypionate 200 mg/mL 70 mg (0.35 mL) IM .COMPLEX #10 mL 01/13/23 02/09/23 Rx intramuscular oil amitriptyline 25 mg tablet 25 mg PO HS 02/09/23 02/09/23 History aspirin 81 mg tablet,delayed 81 mg PO BID 02/09/23 02/09/23 History release oxycodone-acetaminophen 5 mg-325 1 tab PO Q4 PRN Pain, Moderate 02/09/23 02/09/23 History mg tablet propranolol 160 mg capsule,24 160 mg PO QAM 02/09/23 02/09/23 History hr,extended release Patient History Medical History Abnormal brain MRI Asthma Benign essential hypertension Chronic GERD Elevated liver enzymes H/O prostate cancer 2006 s/p prostatectomy Headache, migraine 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 Hyperlipidemia Infection of prosthetic knee joint Low testosterone Osteoarthritis of left knee Osteoarthritis of right knee Osteopenia Pancreatic cyst Surgical History History of arthroscopy of right knee x2--mensicus repair History of colonoscopy 03/24/2020 History of dental surgery History of hernia repair History of left knee replacement surgery x 3 due to infection/tear History of Mohs micrographic surgery for skin cancer x2 History of prostate biopsy malignant History of vasectomy S/P ACL repair right knee S/P prostatectomy S/P tonsillectomy and adenoids Status post right knee replacement Family History Mother Breast cancer COPD (chronic obstructive pulmonary disease) Father Myocardial infarction Grandmother (Paternal) Family hx of colon cancer Other No family history of adverse response to anesthesia Denies family history of Ovarian cancer Prostate cancer Social History Smoking Status: Never smoker Second Hand Exposure: No; Do You Dip or Chew Tobacco: No; Tobacco Cessation Education Requested by Patient: No Hx Alcohol Use: Yes Alcohol type: beer Hx Substance Use: No Preferred Language: Maori Communication Ability: Effective Visual Impairment: No Limitations Hearing Ability: Normal Stockbroker Required: No Beliefs That Will Affect Care: None marital status: Current Living Situation: Spouse current occupational status: employed current occupation: self employed doctor Other Information That Helps Us Care for You: No Feels Safe at Home: Yes Safety Concerns: Feels Safe At This Time Childhood Exposure to Second-Hand Smoke: Yes Diet: low carbohydrate caffeine: Yes (coffee) Dental Care, Regularly: Yes Physical Activity Frequency: 3-4 Times per Week Physical Activity Frequency Comment: weight training Seatbelt Use: sometimes Sunscreen Use: No Do you think of yourself as: straight/heterosexual Assistive Devices: Cane, Glasses and Walker Physical Exam Physical Exam: Examination of the left lower leg reveals a dressing along the anterior aspect of the knee that is clean, dry, and intact. There is moderate diffuse swelling in the lower leg. No significant erythema or induration. Compartments are still soft and compressible. Motor and sensory function is intact distally in the superficial peroneal, deep peroneal, and tibial nerve distributions. No significant pain with passive stretch. Foot is warm well perfused. Results & Data Vital Signs (Past 12 Hours) Vital Signs Temp Pulse Pulse Resp BP BP Pulse Ox 02/10/23 08:47 76 02/10/23 07:28 37.3 C 78 18 134/74 93 02/10/23 05:10 84 02/10/23 05:24 36.7 C 68 18 158/103 H 96 02/10/23 05:10 02/10/23 04:43 84 17 143/86 H 96 02/10/23 04:08 89 16 143/86 H 96 O2 Del Method 02/10/23 08:47 02/10/23 07:28 Room Air 02/10/23 05:10 02/10/23 05:24 Room Air 02/10/23 05:10 Room Air 02/10/23 04:43 Room Air 02/10/23 04:08 Room Air Diagnostic Findings CT scan of the left leg was independently interpreted by me. He has revision arthroplasty components in place with long stems on both the tibial and femoral components. There is a large fluid collection within the muscle compartment of the lower leg. It extends proximally up to the posterior aspect of the knee joint in the popliteal fossa. (1) Hematoma of left lower extremity Encounter type: initial encounter Qualified Code(s): S80.12XA - Contusion of left lower leg, initial encounter
--- NOTE | 2023-02-10 16:16 | Communication Note ---
Date of Service: February 10, 2023 ATTESTATION I also saw the patient and confirmed altamirano portions of the history and exam. I agree with the impression and plan in the resident documentation, and as summarized below. 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 He has been accepted in transfer at [facility], and is currently admitted here awaiting bed availability there. He has no new complaints this morning. He has been seen by orthopedics here as well. EXAM 138/84, 81, 18, 37.1, 97% on room air Alert and oriented. No distress. Neck supple. Heart Lungs clear with nonlabored respirations Abdomen soft nontender Left lower extremity is wrapped with DEONTE DATA Labs Hemoglobin 12.1, platelet count 230 BUN 28, creatinine 0.86 AST 59, ALT 30, alkaline phosphatase [address] scan of the left lower extremity makes note of a small tubular hyperdense focus within the medial aspect of the hematoma within the medial head of the right gastrocnemius which is thought to represent acute exacerbation. Ultrasound left lower extremity is negative for DVT. IMPRESSION & PLAN Hematoma of the left lower extremity History of postoperative infection Appreciate orthopedic consultation Patient has been accepted at [facility] where he had his previous surgeries, just awaiting bed availability Pain well controlled at present; no signs of worsening bleeding We will continue to monitor and await bed Additional per resident documentation
--- NOTE | 2023-02-14 07:56 | Coding Query ---
CODING QUERY To promote full compliance with coding requirements relating to patient care, provider participation is requested in all cases of senior web analyst uncertainty. Please assist us with the question(s) below: Coding Question(s): Please specify below, in your clinical opinion, regarding documentation in the record of, Complication, Postoperative Infection, as on the ER and H&P, and, "I think infection is less likely, as he does not have significant erythema or induration of the lower leg", as on the 02/10 Orthopedic Consultation, and, "History of postoperative infection, as on the 02/10 Communication Note. ( X ) History of Postoperative Infection was treated/monitored during this admission ( ) Active Postoperative Infection was treated/monitored during this admission ( ) Other: Please Specify Physician's Response(s): Thank you Nena Quintanilla Principal Diagnosis: "that condition established after study, to be chiefly responsible for occasioning the admission of the patient to the hospital for care." Co-Existing Principal Diagnosis: "when two or more diagnoses equally meet the criteria for principal diagnosis as determined by the circumstances of admission, diagnostic work up, and/or therapy provided, and the Alphabetic Index, Tabular List, or another coding guideline does not provide sequencing direction, any one of the diagnoses may be sequenced first." "When the physician has documented what appears to be a current diagnosis in the body of the record, but has not included the diagnosis in the final diagnostic statement, the physician should be asked whether the diagnosis should be added." (Source Coding Clinic 2 QTR90. p3-4) WHITNEY
--- NOTE | 2023-02-22 18:59 | Discharge Summary ---
Date of Service February 11, 2023 Admission HPI Per Admitting Provider Marco A Perez is a pleasant 77yo male presenting with swelling and pain of the LLE. Patient had a left TKA performed at [facility] on 11 August 2022. The surgery reportedly went well. Shortly afterwards he slipped on ice and tore his medial retinaculum. He had surgical repair x 2 after which he developed persistent drainage. On November 28, 2022 he presented to [facility] with sepsis. He had a washout performed. His cultures were POSITIVE for E.coli. He subsequently had a PICC line placed and was started on Ceftriaxone x 8 week course. Patient continued to have drainage from a sinus tract as well as susy vated ESR and CRP. He had his hardware removed on February 02, 2023 with placement of antibiotic spacer. He was started on Ertapenem and Vancomycin to be continued x 6 weeks followed by a drug holiday and reevaluation of the knee. Patient had acute swelling and pain of his LLE this evening. He denies fall, trauma. No fever chills, cough, CP or SOB. No additional complaints at this time. In the ER he is afebrile, HD stable and non-toxic in appearance. ER Course: Vancomycin 1250mg given 02/09/23 at 22:57 Admission Exam Per Admitting Provider General: patient resting comfortably, NAD, non-toxic in appearance, AA&O x 4 Skin: warm, dry, intact, no rashes or lesions HEENT: NC/AT, PERRL, EOMI, anicteric sclera, conjunctiva without injection, external ear normal to inspection and nontender, nares patent, moist mucus membranes, dentition intact, no oropharyngeal lesions, neck supple, trachea midline, no LAD, no thyromegaly, no JVD Heart: +S1/S2, regular, no m/r/g, PICC line present right chest wall, non- tender, on erythema Lungs: equal air entry bilaterally, no rales/rhonchi/wheezes Abd: +BS, soft, NT/ND, no masses/organomegaly/ascites Ext: warm, 2+ pulses in UE/LE bilaterally, no clubbing/cyanosis, occlusive dressing present left knee incision, no bleeding/drainage or erythema appreciated. Significant swelling and rubor of the LLE, tenderness and firmness of posterior calf. Sensation/pulses/mobility intact Neuro: nonfocal, patient AA&O x 4, speech intact, no facial droop, moving all extremities on command with equal strength 5/5 Principal Diagnosis Post-operative infection, collection/abscess Discharge Exam General: patient resting comfortably, NAD, non-toxic in appearance, AA&O x 4 Skin: warm, dry, intact, no rashes or lesions HEENT: NC/AT, PERRL, EOMI, anicteric sclera, conjunctiva without injection, external ear normal to inspection and nontender, nares patent, moist mucus membranes, dentition intact, no oropharyngeal lesions, neck supple, trachea midline, no LAD, no thyromegaly, no JVD Heart: +S1/S2, regular, no m/r/g, PICC line present right chest wall, non- tender, on erythema Lungs: equal air entry bilaterally, no rales/rhonchi/wheezes Abd: +BS, soft, NT/ND, no masses/organomegaly/ascites Ext: warm, 2+ pulses in UE/LE bilaterally, no clubbing/cyanosis, occlusive dressing present left knee incision, no bleeding/drainage or erythema appreciated. Significant swelling and rubor of the LLE, tenderness and firmness of posterior calf. Sensation/pulses/mobility intact Neuro: nonfocal, patient AA&O x 4, speech intact, no facial droop, moving all extremities on command with equal strength 5/5 Discharge Data Allergies Allergy/AdvReac Type Severity Reaction Status Date / Time No Known Allergies Allergy Verified 01/13/23 07:24 Consultations 02/10/23 01:59 ED Decision to Admit Stat 02/10/23 05:24 Consult Orthopedic Surgery Routine 02/10/23 20:12 Burn CD for patient Stat Ordered Studies 02/09/23 18:28 US venous duplex leg [US venous doppler LE LT] Stat 02/09/23 20:35 CT tib/fib LT w con Stat Hospital Course (1) Complication, postoperative infection: 77yo male s/p left TKA performed 08/11/22 with subsequent trauma resulting in medial retinaculum tear s/p surgical repair x 2, persistent infection s/p recent explant with placement of antibiotic spacer. Patient is on Ertapenem and Vancomycin. Presenting this evening with acute swelling and pain. Found to have a complex fluid collection along the medial aspect of the calf, measuring approximately 6.8 x 4.9 x 13.3 cm concerning for infection/abscess vs postoperative hematoma. A small tubular hyperdense focus within the medial aspect of the hematoma within the medial head of the right gastrocnemius. This represents active extravasation. This favors active venous bleeding although active arterial bleeding could appear similar. Patient is afebrile, nontoxic in appearance. Hgb=12.1, Hct=36.1. Pain is well controlled at present. Patient was discussed with on-call Orthopedics attending from [facility]. He has been accepted for transfer to their facility - accepting attending Dr. Garrett Wilkes. No beds available at this time -anticipated bed in 24-48 hours. Admit to medical Continue Vancomycin and Ertapenem Hold ASA for now and monitor CBC to assess for ongoing bleeding/extravasation Orthopedics consultation appreciated Tylenol and Oxycodone as needed for pain (2) Chronic GERD: Chronic. Stable -Continue Protonix 20mg po daily (3) Hyperlipidemia: Chronic. Stable -Continue Crestor 20mg po daily (4) Benign essential hypertension: Chronic. Blood pressure elevated at present 153/85 -Continue Propranolol -Continue to monitor F/E/N - Heplock. Electrolytes WNL. Heart healthy diet Ppx - no chemoprophylaxis given concern for hematoma Code - Full per discussion with patient Dispo - Admit to medical with telemetry - transfer to [facility] when bed becomes available Patient transferred to [facility] Total Time Total Time Spent Total Time Spent (In Minutes): 30 Discharge Plan Discharge Items Patient Disposition: Transfer Acute Care Hospital Reason For Visit: LEFT CALF SWELLING Discharge Diagnosis: Complicated postop infection Activity: Per Instructions section Non-emergency contact: Primary Care Provider Call non-emergency contact if: you have any medication questions, your pain is unusual for you, your temperature is above 101.5, your wound has increased redness, your wound has increased drainage and your wound pain has increased Follow-up/Referrals: Michael Malik MD [Primary Care Provider] - Diet: Heart Healthy Addtl Attending Provider Instructions: Complication, postoperative infection - 77yo male s/p left TKA performed 08/11/22 with subsequent trauma resulting in medial retinaculum tear s/p surgical repair x 2, persistent infection s/p recent explant with placement of antibiotic spacer. Patient is on Ertapenem and Vancomycin. - Presenting this evening with acute swelling and pain. Found to have a complex fluid collection along the medial aspect of the calf, measuring approximately 6.8 x 4.9 x 13.3 cm concerning for infection/abscess vs postoperative hematoma. A small tubular hyperdense focus within the medial aspect of the hematoma within the medial head of the right gastrocnemius. This represents active extravasation. -This favors active venous bleeding although active arterial bleeding could appear similar. -Patient is afebrile, nontoxic in appearance. Hgb=12.1, Hct=36.1. -Pain is well controlled at present. -Patient was discussed with on-call Orthopedics attending from [facility]. He has been accepted for transfer to their facility - accepting attending Dr. Garrett Wilkes. -Continue Vancomycin and Ertapenem -Hold ASA for now and monitor CBC to assess for ongoing bleeding/extravasation -Ortho consulted while admitted to [facility], which believes patient has a hematoma of left lower extremity rather than infection. Recommended Pedro wrap, ice, elevation, and limited activity to reduce swelling and transfer to [facility] where he had his previous surgeries performed. -Tylenol and Oxycodone as needed for pain Chronic GERD -Continue Protonix 20mg po daily Hyperlipidemia -Continue Crestor 20mg po daily Benign essential hypertension -Continue Propranolol F/E/N - Heplock. Electrolytes WNL. Heart healthy diet Ppx - no chemoprophylaxis given concern for hematoma Code - Full per discussion with patient Dispo - Admit to medical with telemetry - transfer to [facility] when bed becomes available Pending Studies at Discharge: No Stand-Alone Forms: My [facility] Skilled Items Patient informed of condition?: Yes DNR: No Discharge Level of Care: Other Communicable Disease: No Discharge Prognosis: Stable Lines: Peripheral IV Urinary Catheter: No Medications and DC Order Prescriptions: Continued rosuvastatin [Crestor] 20 mg tablet 20 mg PO QAM imiquimod 2.5 % cream in metered-dose pump 1 pump topical DAILY PRN (Reason: as directed) gabapentin 300 mg capsule 300 mg PO DAILY omega-3 acid ethyl esters 1 gram capsule 2 cap PO DAILY PRN (Reason: joint aches) Patient Comments: takes in the am pantoprazole 20 mg tablet,delayed release (DR/EC) 20 mg PO DAILY Qty: 30 2RF testosterone cypionate 200 mg/mL oil 70 mg IM .COMPLEX Qty: 10 5RF Rx Instructions: inject 0.35ml every other week multivitamin [Daily Multi-Vitamin] tablet 1 tab PO DAILY Qty: 90 3RF Patient Comments: takes in the am sumatriptan succinate 100 mg tablet 100 mg PO .COMPLEX Qty: 1 0RF Rx Instructions: 100 mg PO TAKE AT ONSET OF MIGRAINE HEADACHE. MAY REPEAT IN 2 HOURS IF NEEDED; aspirin 81 mg tablet,delayed release (DR/EC) 81 mg PO BID oxycodone-acetaminophen 5-325 mg tablet 1 tab PO Q4 PRN (Reason: Pain, Moderate) Discontinued propranolol 160 mg capsule,extended release 24 hr 160 mg PO QAM Patient Comments: takes in the am No Action propranolol 160 mg capsule,extended release 24 hr 160 mg PO DAILY Qty: 30 2RF amitriptyline 25 mg tablet 50 mg PO HS anastrozole 1 mg tablet 1 mg PO DAILY Qty: 30 2RF ertapenem 1 gram recon soln 1 g IV DAILY Qty: 10 0RF psyllium Packet 1 packet PO DAILY Qty: 30 0RF Rx Instructions: mix into at least 8 oz of water or juice before administering sennosides-docusate sodium 8.6-50 mg tablet 1 tab-cap PO DAILY Qty: 30 0RF trazodone 100 mg tablet 100 mg PO HS Qty: 30 2RF vancomycin 1.25 gram recon soln 1.25 g IV Q12H Qty: 10 0RF Discharge Orders: Discharge Order (Routine); Ordered 02/10/23 Ordered By: Horacio Dyer Admission Data Admit Date/Time: 02/10/23 03:42 Attending Provider: Joon Murillo Admit Provider: Ashley Ward Primary Care Provider: Michael Malik Other Providers: Mykel Hodgson Other Interventions: Discharge Summary Assessment (RN) Last Done: 02/10/23 20:15 Coding Level of Care Code 39579 IN/OBS DISCH 30 MIN/LESS Diagnoses Complication, postoperative infection T81.40XA Encounter type: initial encounter Postoperative infection type: unspecified type Chronic GERD K21.9 Hyperlipidemia E78.5 Benign essential hypertension I10
== END 2023-02-10 20:30 | disposition short-term general hospital (02) | DRG 921 ==
LOC: ED 18:04 → SUATTDRO 02-10 03:42 → 2S 02-10 03:42